=== PATIENT | female | born 1955 | race Caucasian/White ===

== ENCOUNTER → 2018-08-08 | Day surgery (SDC) | payer BC ==
[~2018-08-08] MED LIST: CALCIUM CARBON500 MG PO; FENTANYL CITRATE/PF 100MCG/2 ML INJ ONE; GLUCOSAMINE &1 EAC1 PO; LOSARTAN POTASS25 MG PO; MIDAZOLAM HCL 2 MG/2 ML VIAL ONE; PROPOFOL IV EMULSION 10 MG/ML 50 ML VIAL ONE
--- OUTSIDE RECORDS SUMMARY | 2018-08-08 06:16 | XMS REPORT | Clinical Summary ---
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 01/02/2019 Active etodolac (LODINE) 400 MG Take 1 tablet 60 tablet 11 tabletIndications: Left (400 mg 8 hip pain total) by mouth 2 (two) times a day. Active Problems No known active problems Encounters Care Team Description Date Type Specialty Richie Paz MD Femoroacetabular impingement of left hip (Primary Dx); Hip instability, left; Tear of left acetabular labrum, subsequent encounter; Greater trochanteric bursitis of left hip; Tendinopathy of left gluteus medius 04/08/2018 Office Visit Orthopedic Surgery Gemma Dumont MA 03/05/2018 Telephone Orthopedic Surgery Richie Paz MD Left hip pain 02/28/2018 Hospital Radiology Encounter Richie Paz MD Left hip pain (Primary Dx); Femoroacetabular impingement of left hip; Hip instability, left; Tear of left acetabular labrum, subsequent encounter; Greater trochanteric bursitis of left hip 02/18/2018 Office Visit Orthopedic Surgery Richie Paz MD Left hip pain 01/02/2018 Hospital Radiology Encounter Richie Paz MD Left hip pain (Primary Dx); Femoroacetabular impingement of left hip; Hip instability, left; Dysplasia of acetabulum; Tear of left acetabular labrum, subsequent encounter; Tendinopathy of left gluteus medius; Greater trochanteric bursitis of left hip 01/02/2018 Office Visit Orthopedic Surgery Gemma Dumont MA Femoroacetabular impingement of left hip (Primary Dx) 11/20/2017 Orders Only Orthopedic Surgery Richie Paz MD Femoroacetabular impingement of left hip (Primary Dx); Hip instability, left; Labral tear of hip, degenerative; Tendinopathy of left gluteus medius 11/12/2017 Office Visit Orthopedic Surgery Richie Paz MD Femoroacetabular impingement of left hip (Primary Dx); Hip instability, left 09/05/2017 Office Visit Orthopedic Surgery after 08/07/2017 Social History Date Tobacco Use Types Packs/Day Years Used Never Smoker Smokeless Tobacco: Never Used Alcohol Use Drinks/Week oz/Week Comments No Sex Assigned at Date Recorded Not on file Industry Job Start Date Occupation Not on file Not on file Not on file Travel End Travel History Travel Start No recent travel history available. Last Filed Vital Signs Time Taken Vital Sign Reading 01/02/2018 12:56 PM CDT Blood Pressure 136/75 01/02/2018 12:56 PM CDT Pulse 48 04/08/2018 12:17 PM HEAT TRANSFER TECHNICIAN Temperature 36.3 C (97.3 F) 01/02/2018 11:45 AM CDT Respiratory Rate 18 - Oxygen Saturation - - Inhaled Oxygen - Concentration 04/08/2018 12:17 PM HEAT TRANSFER TECHNICIAN Weight 54.4 kg (120 lb) 04/08/2018 12:17 PM HEAT TRANSFER TECHNICIAN Height 167.6 cm (5' 6") 04/08/2018 12:17 PM HEAT TRANSFER TECHNICIAN Body Mass Index 19.37 Plan of Treatment Health Maintenance Due Date Last Done Comments CERVICAL CANCER SCREENING 09/23/1976 BREAST CANCER SCREENING 09/23/2005 COLON CANCER SCREENING 09/23/2005 SHINGLES VACCINES (#1) 09/23/2005 INFLUENZA VACCINE 11/28/2018 Procedures Comments Procedure Name Priority Date/Time Associated Diagnosis DE INJECT PLATELET RICH Routine 04/08/2018 Femoroacetabular PLASMA W/IMG 12:30 PM HEAT TRANSFER TECHNICIAN impingement of left hip HARVEST/PREPARATOIN DE ARTHROCENTESIS Routine 04/08/2018 Femoroacetabular ASPIR&/INJ MAJOR JT/BURSA 12:30 PM HEAT TRANSFER TECHNICIAN impingement of left hip W/US MRI LOWER EXTREMITY JOINT Routine 02/28/2018 Left hip pain WO CONTRAST LEFT 9:03 AM CDT FL FLUOROSCOPY GUIDED Routine 01/02/2018 Left hip pain INJECTION 12:57 PM CDT after 08/07/2017 Results * Large Joint Arthrocentesis: hip, L hip joint (04/08/2018 12:30 PM HEAT TRANSFER TECHNICIAN) Narrative Performed At Richie Paz MD 04/29/20189:29 PM Large Joint Arthrocentesis: hip, L hip joint Consent given by: patient Site marked: site marked Timeout: Immediately prior to procedure a time out was called to verify the correct patient, procedure, equipment, customer support agent and site/side marked as required Supporting Documentation Indications: pain Procedure Details Preparation: Patient was prepped and draped in the usual sterile fashion Ultrasound guided: yes Platelet Rich Plasma Used: PRP Used Location: hip - L hip joint Left side: Needle size: 20 G Approach: anterior Patient tolerance: patient tolerated the procedure well with no immediate complications * MRI Lower Extremity Joint Wo Contrast Left (02/28/2018 9:03 AM CDT) Narrative Performed At [facility] EXAM: MRI LOWER EXTREMITY JOINT WO CONTRAST LEFT CLINICAL DATA:M25.552 Pain in left hip, pain COMPARISON: Outside MRI performed on June 07, 2017. TECHNIQUE: Multiplanar, multisequence MRI examination ofthe left hip was performed without contrast. FINDINGS: Bone marrow: There are some enthesophytes on the greater trochanter. There is no stress fracture or bone marrow edema. Labrum: Tiny anterosuperior labral tear. No paralabral cyst. Remaining portions of the labrum appear intact. 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 Cartilage: The femoral and acetabular cartilage are normal. Joint effusion: Joint fluid is physiologic.. Soft tissues: There is mildly increased fluid in the trochanteric bursa, compatible with mild bursitis.. There is some abnormal signal associated with the gluteus minimus and medius tendons, consistent with tendinosis. The appearance is similar to the prior study.. The direct and reflected heads of the rectus femoris muscle are unremarkable. The common hamstring origin is within normal limits. No abnormality is noted along the course of the sciatic nerve. There is no evidence of ischiofemoral impingement. IMPRESSION: 1.Gluteus minimus and medius tendinosis. 2.Mild trochanteric bursitis. 3.Cam FADIA and small labral tear. [id number] Procedure Note Interface, Radiology Results Incoming - 02/28/2018 9:33 AM CDT EXAM: MRI LOWER EXTREMITY JOINT WO CONTRAST LEFT CLINICAL DATA: M25.552 Pain in left hip, pain COMPARISON: Outside MRI performed on June 07, 2017. TECHNIQUE: Multiplanar, multisequence MRI examination of the left hip was performed without contrast. FINDINGS: Bone marrow: There are some enthesophytes on the greater trochanter. There is no stress fracture or bone marrow edema. Labrum: Tiny anterosuperior labral tear. No paralabral cyst. Remaining portions of the labrum appear intact. 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 Cartilage: The femoral and acetabular cartilage are normal. Joint effusion: Joint fluid is physiologic.. Soft tissues: There is mildly increased fluid in the trochanteric bursa, compatible with mild bursitis.. There is some abnormal signal associated with the gluteus minimus and medius tendons, consistent with tendinosis. The appearance is similar to the prior study.. The direct and reflected heads of the rectus femoris muscle are unremarkable. The common hamstring origin is within normal limits. No abnormality is noted along the course of the sciatic nerve. There is no evidence of ischiofemoral impingement. IMPRESSION: 1. Gluteus minimus and medius tendinosis. 2. Mild trochanteric bursitis. 3. Cam FADIA and small labral tear. [facility]-[id number] Performing Organization Address City/State/Zipcode Phone Number [facility] [address] [place] [address] * [place] Fluoroscopy Guided Injection (01/02/2018 12:57 PM CDT) Narrative Performed At EXAMINATION:[place] FLUOROSCOPY GUIDED INJECTION [facility] CLINICAL HISTORY:M25.552 Pain in left hip, pain COMPARISON:None. COMMENTS: Informed consent was obtained. Left hip joint was localized with fluoroscopy. The overlying skin was prepped and draped in routine sterile fashion. Using fluoroscopic guidance, after administration of local lidocaine, a 22 gauge needle was advanced into the left hip joint. Small amount of Omnipaque contrast was administered to confirm intra-articular positioning. Subsequently, mixture of 40 mg of Depo-Medrol and 5 mL of 1% lidocaine and 5 mL mL of 0.25% Marcaine was administered in the joint.Patient tolerated the procedure and there were no immediate complications. Radiation dose: 18.4 mGy IMPRESSION: Technically successful fluoroscopic-guided administration of steroid and anesthetic in the left hip joint. [id number] Procedure Note Interface, Radiology Results Incoming - 01/02/2018 3:19 PM CDT EXAMINATION: FL FLUOROSCOPY GUIDED INJECTION CLINICAL HISTORY: M25.552 Pain in left hip, pain COMPARISON: None. COMMENTS: Informed consent was obtained. Left hip joint was localized with fluoroscopy. The overlying skin was prepped and draped in routine sterile fashion. Using fluoroscopic guidance, after administration of local lidocaine, a 22 gauge needle was advanced into the left hip joint. Small amount of Omnipaque contrast was administered to confirm intra-articular positioning. Subsequently, mixture of 40 mg of Depo- Medrol and 5 mL of 1% lidocaine and 5 mL mL of 0.25% Marcaine was administered in the joint. Patient tolerated the procedure and there were no immediate complications. Radiation dose: 18.4 mGy IMPRESSION: Technically successful fluoroscopic-guided administration of steroid and anesthetic in the left hip joint. [facility]-[id number] Performing Organization Address City/State/Zipcode Phone Number [facility] [address] [place] [address] after 08/07/2017 Insurance Payer Benefit Subscriber ID Type Phone Address Plan / Group BCBS BCBS OUT xxxxxxxxxxxx PPO OF STATE Advance Directives Patient has advance care planning documents on file. For more information, mathew hollins contact: Irvin Martin [address] [place] [address]
--- OUTSIDE RECORDS SUMMARY | 2018-08-08 06:16 | XMS REPORT | Clinical Summary ---
Author Author ASHLEY [facility] Address Unknown Phone Unavailable Care Team Providers Care Alum Operator Name Role Phone Bart Cortes PCP Allergies No Known Allergies Medications End Date Status Medication Sig Dispensed Refills Start Date Active losartan (COZAAR) 50 MG Take 50 mg by 0 tablet mouth daily. Active amoxicillin-clavulanate Take 1 tablet 0 (AUGMENTIN) 875-125 mg by mouth 2 per tablet (two) times daily. Active predniSONE (DELTASONE) 20 Take 20 mg by 0 MG tablet mouth daily. Active ferrous sulfate 325 (65 Take 325 mg 0 FE) MG tablet by mouth daily with breakfast. Active calcium citrate-vitamin D Take 1 tablet 0 (CITRACAL+D) 315-200 by mouth 2 mg-unit per tablet (two) times daily. Active dexamethasone (DECADRON) 2/2-3: 2 tabs 24 tablet 0 4 MG tablet w/ breakfast, 9 lunch, dinner 24-5: 2 tabs bfast, dinner 6-7: 1 tab bfast, dinner /8-9: 1 tab bfast. 06/11/2018 famotidine (PEPCID) 20 MG Take 1 tablet 20 tablet 0 tablet (20 mg total) 9 by mouth 2 (two) times daily for 10 days. 06/11/2018 senna-docusate (SENOKOT Take 1 tablet 20 tablet 0 S) 8.6-50 mg per tablet by mouth 2 9 (two) times daily for 10 days. 06/08/2018 acetaminophen-codeine Take 1 tablet 30 tablet 0 (TYLENOL #4) 300-60 mg by mouth 9 per tablet every 4 (four) hours as needed for Pain for up to 7 days. Max Daily Amount: 6 tablets Active Problems Problem Noted Date Hypertension 05/31/2018 Overview: controlled with meds x 20 yrs Anemia 05/31/2018 Thrombocytopenia 05/31/2018 Meningioma 05/30/2018 Encounters Care Team Description Date Type Specialty 06/01/2018 Travel Kasi Turcios MD CRANIOTOMY/ CRANIECTOMY,EXCISION TUMOR 05/30/2018 Surgery Kelsi Sandoval MD 05/30/2018 Anesthesia Event Kasi Turcios MD Mezrahi, Maria, MD Gadicherla, Sonal Muralinath, MD Meningioma (HCC) (Primary Dx); Anemia, unspecified type; Essential hypertension; Thrombocytopenia (HCC) 05/30/2018 [facility] General Internal Medicine - Encounter 06/01/2018 Kasi Turcios MD Benign neoplasm of meninges (HCC) 05/22/2018 Hospital Radiology Encounter Kasi Turcios MD Benign neoplasm of meninges (HCC) 05/22/2018 Hospital Radiology Encounter Kasi Turcios MD Benign neoplasm of meninges (HCC) (Primary Dx) 05/21/2018 Outside Orders Radiology Kasi Turcios MD Meningioma (HCC) (Primary Dx) 05/21/2018 Orders Only Neurosurgery Fab Paz 05/21/2018 Outside Orders Radiology Kasi Turcios MD 05/20/2018 Hospital Pre-Admission Testing Encounter 05/20/2018 Orders Only General Internal Medicine after 08/07/2017 Immunizations Name Dates Previously Given Next Due Pneumococcal Conjugate 06/01/2018 (Prevnar) 13-Valent Social History Date Tobacco Use Types Packs/Day Years Used Never Smoker Smokeless Tobacco: Never Used Alcohol Use Drinks/Week oz/Week Comments Yes occ Sex Assigned at Date Recorded Not on file Industry Job Start Date Occupation Not on file Not on file Not on file Travel End Travel History Travel Start No recent travel history available. Last Filed Vital Signs Time Taken Vital Sign Reading 06/01/2018 12:13 PM [employer] Blood Pressure 133/78 06/01/2018 12:13 PM [employer] Pulse 55 06/01/2018 12:13 PM [employer] Temperature 37.2 C (98.9 F) 06/01/2018 12:13 PM [employer] Respiratory Rate 20 06/01/2018 12:13 PM [employer] Oxygen Saturation 95% - Inhaled Oxygen - Concentration 05/31/2018 5:30 AM [employer] Weight 56.6 kg (124 lb 12.5 oz) 05/30/2018 6:00 AM [employer] Height 167.6 cm (5' 5.98") 05/31/2018 5:30 AM [employer] Body Mass Index 20.15 Plan of Treatment Not on file Implants Device Identifier Shelf Expiration Date Model / Serial / Lot Implanted Type Area Manufactur er [id number] / / Cvr Bur Hole Lp 14mm W/Tab [id number] Fracture/F Head GOGO:ST - [id number] ixation MARCELA Implanted: Qty: 2 on 05/30/2018 by Kasi Cruz MD [id number] / / Plt Mod Lp Bar 12mm W/Tab 2h Fracture/F Head GOGO:ST [id number] - [id number] ixation MARCELA Implanted: Qty: 1 on 05/30/2018 by Kasi Cruz MD [id number] / / Scr Un3 [place] Self Drl 1.5x4mm Fracture/F Head GOGO:CR [id number] - [id number] ixation ANIOMAXILL Implanted: Qty: 10 on 05/30/2018 by Kasi Malone MD Procedures Comments Procedure Name Priority Date/Time Associated Diagnosis INTRAOPERATIVE PATH 06/17/2018 REPORT - SCAN 11:50 AM [employer] RHYTHM STRIP - SCAN 06/17/2018 11:50 AM [employer] CBC W/PLT COUNT & AUTO Routine 06/01/2018 DIFFERENTIAL 4:33 AM [employer] BASIC METABOLIC PANEL (7) Routine 06/01/2018 4:33 AM [employer] CBC W/PLT COUNT & AUTO Routine 06/01/2018 DIFFERENTIAL 4:33 AM [employer] TRANSFUSION SERVICE 05/31/2018 REPORT - SCAN 6:02 PM [employer] MR BRAIN WITHOUT & WITH Routine 05/31/2018 IV CONTRAST 1:10 PM [employer] CBC W/PLT COUNT & AUTO Routine 05/31/2018 DIFFERENTIAL 4:48 AM [employer] BASIC METABOLIC PANEL (7) Routine 05/31/2018 4:48 AM [employer] CBC W/PLT COUNT & AUTO Routine 05/31/2018 DIFFERENTIAL 4:48 AM [employer] PHOSPHORUS Routine 05/31/2018 4:48 AM [employer] MAGNESIUM Routine 05/31/2018 4:48 AM [employer] CBC (HEMOGRAM ONLY) Routine 05/30/2018 2:13 PM [employer] PHOSPHORUS Routine 05/30/2018 2:13 PM [employer] MAGNESIUM Routine 05/30/2018 2:13 PM [employer] BASIC METABOLIC PANEL (7) Routine 05/30/2018 2:13 PM [employer] SHORT LATENCY SEP ALL Routine 05/30/2018 LIMBS 1:00 PM [employer] HGB/HCT (H&H) - STAT LAB STAT 05/30/2018 12:23 PM [employer] GLUCOSE-STAT LAB STAT 05/30/2018 12:23 PM [employer] POTASSIUM-STAT LAB STAT 05/30/2018 12:23 PM [employer] SODIUM NA-STAT LAB STAT 05/30/2018 12:23 PM [employer] BLOOD GAS, ARTERIAL STAT 05/30/2018 12:23 PM [employer] CALCIUM, IONIZED STAT 05/30/2018 12:23 PM [employer] RRL CRITICAL LABS STAT 05/30/2018 (ABG,NA,K,H&H,GLUCOSE) 12:23 PM [employer] TISSUE EXAM AP Routine 05/30/2018 10:23 AM [employer]ER HGB/HCT (H&H) - STAT LAB STAT 05/30/2018 9:09 AM [employer]ER GLUCOSE-STAT LAB STAT 05/30/2018 9:09 AM [employer] POTASSIUM-STAT LAB STAT 05/30/2018 9:09 AM [employer] SODIUM NA-STAT LAB STAT 05/30/2018 9:09 AM [employer] BLOOD GAS, ARTERIAL STAT 05/30/2018 9:09 AM [employer] CALCIUM, IONIZED STAT 05/30/2018 9:09 AM [employer] RRL CRITICAL LABS STAT 05/30/2018 (ABG,NA,K,H&H,GLUCOSE) 9:09 AM [employer]ER PROCEDURE W/ STEALTH 05/30/2018 Meningioma (HCC) 8:30 AM [employer] Special Needs (INTRA-OPE RATIVE ULTRASOUND , MICROSCOPE , STEALTH NAVIGATION , MCKENZIE CLAMP, SONOPET, DRILL AND MICRO INSTRUMENT S) CRANIOTOMY/ 05/30/2018 Meningioma (HCC) CRANIECTOMY,EXCISION 8:30 AM [employer] TUMOR Special Needs (INTRA-OPE RATIVE ULTRASOUND , MICROSCOPE , STEALTH NAVIGATION , MCKENZIE CLAMP, SONOPET, DRILL AND MICRO INSTRUMENT S) URINALYSIS W/ MICROSCOPIC Routine 05/30/2018 Meningioma (HCC) 7:23 AM [employer] CBC W/PLT COUNT & AUTO Routine 05/30/2018 Meningioma (HCC) DIFFERENTIAL 6:17 AM [employer]ER ABORH, MANUAL STAT 05/30/2018 6:17 AM [employer] CBC W/PLT COUNT & AUTO Routine 05/30/2018 Meningioma (HCC) DIFFERENTIAL 6:17 AM [employer] BASIC METABOLIC PANEL (7) Routine 05/30/2018 Meningioma (HCC) 6:17 AM [employer]ER PROTHROMBIN TIME/INR Routine 05/30/2018 Meningioma (HCC) 6:17 AM [employer] APTT Routine 05/30/2018 Meningioma (HCC) 6:17 AM [employer] MR BRAIN WITHOUT & WITH Routine 05/22/2018 Benign neoplasm of IV CONTRAST 2:18 PM [employer] meninges (HCC) MR MRA HEAD WITHOUT Routine 05/22/2018 Benign neoplasm of CONTRAST 1:20 PM [employer] meninges (HCC) TRANSFUSION SERVICE 05/21/2018 REPORT - SCAN 5:54 PM [employer] TYPE AND SCREEN, Routine 05/20/2018 AUTOMATED 3:09 PM [employer] ELECTROLYTE PANEL Routine 05/20/2018 3:09 PM [employer] BUN AND CREATININE Routine 05/20/2018 3:09 PM [employer] PLATELET COUNT Routine 05/20/2018 3:09 PM [employer] HEMOGLOBIN Routine 05/20/2018 3:09 PM [employer] ECG 12-LEAD Routine 05/20/2018 3:04 PM [employer] Procedure Note - Interface, External Ris In - 05/20/2018 3:16 PM [employer] Ventricula r Rate 55 BPM Atrial Rate 55 BPM P-R Interval 162 ms QRS Duration 88 ms Q-T Interval 444 ms QTC Calculatio n(Bazett) 424 ms P [place] 53 degrees R [place] 78 degrees T [place] 7 degrees Sinus bradycardi a Minimal voltage criteria for LVH, may be normal variant Nonspecifi c T wave abnormalit y Abnormal ECG No previous ECGs available ECG 12-LEAD Routine 05/20/2018 3:04 PM [employer] after 08/07/2017 Results * INTRAOPERATIVE PATH REPORT - SCAN (06/17/2018 11:50 AM [employer] [facility]) Narrative Performed At * RHYTHM STRIP - SCAN (06/17/2018 11:50 AM [employer]) Narrative Performed At * CBC with platelet count + automated diff (06/01/2018 4:33 AM [employer]ER) Only the most recent of 3 results within the time period is included. WBC 13.2 (H) 3.5 - 10.5 K/L [facility] RBC 3.56 (L) 3.93 - 5.22 M/L [facility] Hemoglobin 10.9 (L) 11.2 - 15.7 GM/DL [facility] Hematocrit 32.8 (L) 34.1 - 44.9 % [facility] MCV 92.1 79.4 - 94.8 fL [facility] MCH 30.6 25.6 - 32.2 pg [facility] MCHC 33.2 32.2 - 35.5 GM/DL [facility] RDW 12.8 11.7 - 14.4 % [facility] Platelets 149 (L) 150 - 450 K/CU MM [facility] MPV 12.9 (H) 9.4 - 12.3 fL [facility] nRBC 0 0 - 0 /100 WBC [facility] % Neutros 92 % [facility] % Lymphs 4 % [facility] % Monos 3 % [facility] % Eos 0 % [facility] % Baso 0 % [facility] # Neutros 12.13 (H) 1.56 - 6.13 K/L [facility] # Lymphs 0.49 (L) 1.18 - 3.74 K/L [facility] # Monos 0.45 (H) 0.24 - 0.36 K/L [facility] # Eos 0.00 (L) 0.04 - 0.36 K/L [facility] # Baso 0.01 0.01 - 0.08 K/L [facility] Immature 1 0 - 1 % [facility] Granulocytes-[facility] Specimen Blood Performing Organization Address City/State/Zipcode Phone Number [facility] [address] [place] [address] MEDICAL CENTER * Basic Metabolic Panel (06/01/2018 4:33 AM [employer]ER) Only the most recent of 4 results within the time period is included. [facility] 142 136 - 145 meq/L [facility] Potassium 3.8 3.5 - 5.1 meq/L [facility] Chloride 109 (H) 98 - 107 meq/L [facility] CO2 26 22 - 29 meq/L [facility] BUN 15 7 - 21 mg/dL [facility] Creatinine 0.68 0.57 - 1.25 mg/dL [facility] Glucose 141 (H) 70 - 105 mg/dL [facility] Calcium 9.0 8.4 - 10.2 mg/dL [facility] EGFR 88Comment: ESTIMATED GFR IS mL/min/1.73 sq m [facility] NOT ACCURATE CREATININE [facility] CLEARANCE IN PREDICTING GLOMERULAR FILTRATION RATE. ESTIMATED GFR IS NOT APPLICABLE FOR DIALYSIS PATIENTS. Specimen Blood Performing Organization Address City/State/Zipcode Phone Number [facility] [address] [place] [address] [facility] * TRANSFUSION SERVICE REPORT - SCAN (05/31/2018 6:02 PM [employer]ER) Only the most recent of 2 results within the time period is included. Narrative Performed At * MR brain without & with IV contrast (05/31/2018 1:10 PM [employer]ER) Only the most recent of 2 results within the time period is included. Narrative Performed At FINAL REPORT [employer] MRI Brain with and without contrast 05/31/2018 2:00 PM CLINICAL HISTORY: skull base meningioma s/p resection TECHNIQUE: Multiplanar, multisequence MR imaging of the brain was performed, utilizing the following imaging sequences: Axial T1, T2, FLAIR, GRE, DWI/ADC; sagittal T1; postcontrast axial, sagittal, and coronal T1. COMPARISON: 05/22/2019. FINDINGS: There is no residual olfactory groove meningioma. There is disorganized hemorrhage within and about the paramedian anterior inferior frontal lobes. There is no organized hematoma. There is small volume ischemic edema within the paramedian anterior inferior frontal lobes. There is no arterial or venous distribution infarction. There is a 13 mm mixed signal intensity subdural collection overlying the right frontal lobe, with mass effect resulting in 5 mm midline shift, measured at the septum pellucidum. There is no parenchymal herniation or ventricular entrapment. There is small volume pneumocephalus without concerning mass effect. There is no craniotomy offset or concerning subgaleal collection. Normal appearing flow-voids are present in the major intracranial vascular structures. There is an unchanged 16 mm nonenhancing T2/FLAIR hyperintense lesion without mass effect in the anteromesial left temporal lobe. IMPRESSION: 1. Negative for residual olfactory groove meningioma. 2. Postoperative changes as discussed. 3. Stable anteromesial left temporal lobe lesion Signed: Alex Voss MD Report Verified Date/Time:05/31/2018 14:05:06 Reading Location: [facility] Radiology Reading Room Procedure Note Interface, External Ris In - 05/31/2018 2:07 PM [employer]ER FINAL REPORT MRI Brain with and without contrast 05/31/2018 2:00 PM CLINICAL HISTORY: skull base meningioma s/p resection TECHNIQUE: Multiplanar, multisequence MR imaging of the brain was performed, utilizing the following imaging sequences: Axial T1, T2, FLAIR, GRE, DWI/ADC; sagittal T1; postcontrast axial, sagittal, and coronal T1. COMPARISON: 05/22/2019. FINDINGS: There is no residual olfactory groove meningioma. There is disorganized hemorrhage within and about the paramedian anterior inferior frontal lobes. There is no organized hematoma. There is small volume ischemic edema within the paramedian anterior inferior frontal lobes. There is no arterial or venous distribution infarction. There is a 13 mm mixed signal intensity subdural collection overlying the right frontal lobe, with mass effect resulting in 5 mm midline shift, measured at the septum pellucidum. There is no parenchymal herniation or ventricular entrapment. There is small volume pneumocephalus without concerning mass effect. There is no craniotomy offset or concerning subgaleal collection. Normal appearing flow-voids are present in the major intracranial vascular structures. There is an unchanged 16 mm nonenhancing T2/FLAIR hyperintense lesion without mass effect in the anteromesial left temporal lobe. IMPRESSION: 1. Negative for residual olfactory groove meningioma. 2. Postoperative changes as discussed. 3. Stable anteromesial left temporal lobe lesion Signed: Alex Voss MD Report Verified Date/Time: 05/31/2018 14:05:06 Reading Location: [facility] Reading Room Performing Organization Address City/State/Zipcode Phone Number [facility] * Phosphorus (05/31/2018 4:48 AM [employer]ER) Only the most recent of 2 results within the time period is included. Phosphorus 3.2 2.3 - 4.7 mg/dL [facility] Specimen Blood Performing Organization Address [facility] Phone Number [address] * Magnesium (05/31/2018 4:48 AM [employer]ER) Only the most recent of 2 results within the time period is included. Magnesium 1.9 1.6 - 2.6 mg/dL [facility] Specimen Blood Performing Organization Address [facility] Phone Number [address] * CBC (Hemogram only) (05/30/2018 2:13 PM [employer]ER) WBC 5.7 3.5 - 10.5 K/L [facility] RBC 3.90 (L) 3.93 - 5.22 M/L [facility] Hemoglobin 12.0 11.2 - 15.7 GM/DL [facility] Hematocrit 35.8 34.1 - 44.9 % [facility] MCV 91.8 79.4 - 94.8 fL [facility] MCH 30.8 25.6 - 32.2 pg [facility] MCHC 33.5 32.2 - 35.5 GM/DL [facility] RDW 12.6 11.7 - 14.4 % [facility] Platelets 148 (L) 150 - 450 K/CU MM [facility] MPV 12.3 9.4 - 12.3 fL [facility] nRBC 0 0 - 0 /100 WBC [facility] Specimen Blood - Line, Arterial Performing Organization Address City/State/Zipcode Phone Number [facility] [address] [place] [address] MEDICAL CENTER * SHORT LATENCY SEP ALL LIMBS (05/30/2018 1:00 PM [employer]ER) Narrative Performed At [facility]UROCON[facility] INTRAOPERATIVE MONITORING REPORT Patient Name: Trini Paz [facility] Surgery Date: 05/30/2018 [place] Pro: [id number] Monitoring began at 0812 and finished at 1315 Surgeon: Kasi Turcios MD Examining Physician: Claudia Mejia M.D., Karey Edwards M.D. Monitoring Technologist: SALENA Muse Procedure: Right Pterional Craniotomy for resection of skull base meningioma Stimulation Parameters: Median nerves individually stimulated at the wrist Rate 4.7Hz, Intensity 35mA, Duration 0.3ms Posterior Tibial nerves individually stimulated at the ankle Rate 4.7Hz, Intensity 80mA, Duration 0.3ms Filters 30-500Hz, Notch Off Motor strip stimulated anterior to C3 and C4 with alternating polarities Intensity 100-500V, Train Rate 7-9, TRES 2-3ms Filters 30-2KHz, Notch Off Recording Parameters: CS5, CP3, CP4, Cz and FPz, Transcranial electrical Motor Evoked Potentials recorded from bilateral Abductor Pollicis Brevis, Tibialis Anterior referenced to Lateral Gastrocnemius, and Adductor Hallucis muscle groups. Description: Intraoperative neurophysiological monitoring was performed using a combination of upper and lower extremity somatosensory evoked potentials and transcranial electrical motor evoked potentials (TceMEP). A real-time connection with the examining neurologist was established and maintained throughout the operative procedure by the monitoring technologist. Upper extremity somatosensory evoked potentials were recorded centrally at the cervical and cortical levels following median nerve stimulation at the wrist. Lower extremity somatosensory evoked potentials were recorded centrally at the cervical and cortical levels following posterior tibial nerve stimulation at the ankle. Upper and lower SSEPs were well formed and reproducible at baselines. No changes were seen at closing. Surgeon aware. TcMEPs were recorded peripherally from the upper and lower extremities following alternating polarity motor strip stimulation. Upper and lower TcMEPs were well formed and reproducible at baselines. No changes seen at closing. The surgeon was informed of all results, and he acknowledged. Conclusion: The SEP study suggests the absence of untoward, secondary effects on the somatosensory pathway as a consequence of this surgical procedure. The MEP study suggests the absence of untoward, secondary effects on the motor pathways innervating these monitored muscles. Surgeon aware of all responses in real-time during the case and at closing. Claudia Mejia M.D. D32.9, D64.9 Karey Edwards M.D. D32.9, D64.9 Procedure Note Interface, External Ris In - 06/14/2018 8:58 PM [facility] NEUROCONNECT INTRAOPERATIVE MONITORING REPORT Patient Name: Trini Paz [facility] Surgery Date: 05/30/2018 [place] Pro: [id number] Monitoring began at 0812 and finished at 1315 Surgeon: Kasi Turcios MD Examining Physician: Claudia Mejia M.D., Karey Edwards M.D. Monitoring Technologist: SALENA Muse Procedure: Right Pterional Craniotomy for resection of skull base meningioma Stimulation Parameters: Median nerves individually stimulated at the wrist Rate 4.7Hz, Intensity 35mA, Duration 0.3ms Posterior Tibial nerves individually stimulated at the ankle Rate 4.7Hz, Intensity 80mA, Duration 0.3ms Filters 30-500Hz, Notch Off Motor strip stimulated anterior to C3 and C4 with alternating polarities Intensity 100-500V, Train Rate 7-9, TRES 2-3ms Filters 30-2KHz, Notch Off Recording Parameters: CS5, CP3, CP4, Cz and FPz, Transcranial electrical Motor Evoked Potentials recorded from bilateral Abductor Pollicis Brevis, Tibialis Anterior referenced to Lateral Gastrocnemius, and Adductor Hallucis muscle groups. Description: Intraoperative neurophysiological monitoring was performed using a combination of upper and lower extremity somatosensory evoked potentials and transcranial electrical motor evoked potentials (TceMEP). A real-time connection with the examining neurologist was established and maintained throughout the operative procedure by the monitoring technologist. Upper extremity somatosensory evoked potentials were recorded centrally at the cervical and cortical levels following median nerve stimulation at the wrist. Lower extremity somatosensory evoked potentials were recorded centrally at the cervical and cortical levels following posterior tibial nerve stimulation at the ankle. Upper and lower SSEPs were well formed and reproducible at baselines. No changes were seen at closing. Surgeon aware. TcMEPs were recorded peripherally from the upper and lower extremities following alternating polarity motor strip stimulation. Upper and lower TcMEPs were well formed and reproducible at baselines. No changes seen at closing. The surgeon was informed of all results, and he acknowledged. Conclusion: The SEP study suggests the absence of untoward, secondary effects on the somatosensory pathway as a consequence of this surgical procedure. The MEP study suggests the absence of untoward, secondary effects on the motor pathways innervating these monitored muscles. Surgeon aware of all responses in real-time during the case and at closing. Claudia Mejia M.D. D32.9, D64.9 Karey Edwards M.D. D32.9, D64.9 Performing Organization Address City/State/Zipcode Phone Number [facility] * Potassium-Stat Lab (05/30/2018 12:23 PM [employer]ER) Only the most recent of 2 results within the time period is included. Potassium 3.7 3.6 - 5.5 meq/L [facility] Specimen Blood, Arterial Performing Organization Address [facility] Phone Number [address] * Sodium Na-Stat Lab (05/30/2018 12:23 PM [employer]ER) Only the most recent of 2 results within the time period is included. Sodium 140 135 - 148 meq/L [facility] Specimen Blood, Arterial Performing Organization Address City/[facility] Phone Number [place] [phone] * Glucose-Stat Lab (05/30/2018 12:23 PM BREWERY PUMPER) Only the most recent of 2 results within the time period is included. Glucose 107 70 - 110 mg/dL [facility] Specimen Blood, Arterial Performing Organization Address [facility] Phone Number [address] * HGB/HCT (H&H)-Stat Lab (05/30/2018 12:23 PM [employer]WERY PUMPER) Only the most recent of 2 results within the time period is included. Hemoglobin 11.8 (L) 12.0 - 15.0 g/dL [facility] Hematocrit 35.0 (L) 36.0 - 45.0 % [facility] Specimen Blood, Arterial Performing Organization Address [facility] Phone Number [place] [phone] [place] [address] * Calcium, Ionized (05/30/2018 12:23 PM BREWERY PUMPER) Only the most recent of 2 results within the time period is included. Calcium, Ion 1.08 (L) 1.12 - 1.27 mmol/L [facility] pH, Blood 7.39 [facility] Specimen Blood Performing Organization Address [facility] Phone Number [address] [address] [facility] * Blood gas, arterial (05/30/2018 12:23 PM BREWERY PUMPER) Only the most recent of 2 results within the time period is included. pH, Arterial 7.46 (H) 7.35 - 7.45 [facility] pCO2, Arterial 30 (L) 35 - 45 mmHg [facility] pO2, Arterial 254 (H) 80 - 90 mmHg [facility] O2 Sat, Arterial 99.6 (H) 96.0 - 97.0 % [facility] HCO3, Arterial 22 21 - 29 mmol/L [facility] Base Excess, Arterial -2.6 (L) -2.0 - 3.0 mmol/L [facility] Patient Temperature 32.0 C [facility] FIO2 57.0 % [facility] Specimen Blood, Arterial Performing Organization Address City/State/Zipcode Phone Number [facility] [address] [place] [address] [facility] * Tissue Exam (05/30/2018 10:23 AM BREWERY PUMPER) Case Report Surgical Pathology [facility] Report [facility] Case: [id number] Authorizing Provider:Kasi Turcios MDCollected: 05/30/2018 1023 Ordering Location: [facility] PERIOPERATIVE Received: 05/30/2018 1026 SERVICES Pathologist: Denny Gill MD Specimens: A) - Mass, BRAIN TUMOR B) - Mass, SKULL BASE MASS DIAGNOSIS A BRAIN, SKULL BASE, [facility] CRANIOTOMY: [facility] TRANSITIONAL MENINGIOMA WITH FOCALLY INCREASED PROLIFERATION INDEX (SEE COMMENT) B BRAIN, SKULL BASE, CRANIOTOMY: TRANSITIONAL MENINGIOMA WITH FOCALLY INCREASED PROLIFERATION INDEX (SEE COMMENT) Signing Pathologist Direct Phone Line: [phone] COMMENT The tumor has no atypical [facility] histologic features and [facility] mitoses are not increased. The majority of the tumor has a MIB-1 labeling index of 3-4%. However, several microscopic foci of intense nuclear labeling by Ki67 are noted in the tumor cells. Within these areas, the labeling index is from 20-30%. So although the histology corresponds to WHO grade I, the foci of markedly increased proliferation indices warrants close clinical follow-up, as is clinically indicated. CPT Code(s) 25002 x 2; 87158; 24734 [facility] SPECIMEN SOURCE A. Brain tumor; B. Mass [facility] GROSS DESCRIPTION Part A. Received fresh for [facility] intraoperative consultation is [facility] a 0.3 x 0.1 x less than 0.1 cm macias-fleming piece of tissue. Touch preparations are made, and the specimen is submitted entirely for frozen sections. Section code: A1FS, frozen section AG/ew Part B: Received in formalin, labeled with the patient's information and "mass", is a 1.7 x 1.2 x 0.3 cm aggregate of macias-pink to macias-red pieces of tissue. The specimen is submitted entirely following filtration in cassette B1. DR/pl INTRAOPERATIVE A1FS - BRAIN, EXCISION: [facility] CONSULTATION - MENINGIOMA [facility] This was verbally reported by Dr. Gill on May 30, 2018 at 10:48 A.M. MICROSCOPIC DESCRIPTION Performed on A and B [facility] SPECIAL STUDIES The interpretation of this [facility] case included the use of [facility] immunohistochemistry or special stains. Immunohistochemistry technical testing was performed at [facility], Pathology Laboratory where it was developed and its performance characteristics were determined. It has not been cleared or approved by the U.S. Food and Drug Administration. The FDA has determined that such clearance or approval is not necessary. The test is used for clinical purposes. It should not be regarded as investigational or for research. This laboratory is certified under the Clinical Laboratory Improvement Amendments of 1988 (CLIA-88) as qualified to perform high complexity clinical laboratory testing. Specimen Tissue - Mass Performing Organization Address City/State/Zipcode Phone Number [facility] [address] [place] [address] [facility] * Urinalysis w/Microscopic (05/30/2018 7:23 AM BREWERY PUMPER) Color, UA Yellow [facility] Clarity, UA Clear [facility] Specific [place], UA 1.020 1.001 - 1.035 [facility] pH, UA 5.0 5.0 - 8.0 [facility] Protein, UA Negative Negative [facility] Glucose, UA Negative Negative [facility] Ketones, UA Negative Negative [facility] Bilirubin, UA Negative Negative [facility] Blood, UA Negative Negative [facility] Nitrite, UA Negative Negative [facility] Leukocytes, UA Negative Negative [facility] Urobilinogen, UA 0.2 0.2 - 1.0 mg/dL [facility] RBC, UA <1 /HPF [facility] WBC, UA 2 /HPF [facility] Mucus Rare [facility] Squam Epithel, UA <1 /HPF [facility] Ca Oxalate Citlalli, UA Occasional [facility] Specimen Source [facility] Specimen Urine Performing Organization Address City/[facility] Phone Number [facility] [address] [place] [address] [phone] [place] [address] * ABORH, manual (05/30/2018 6:17 AM BREWERY PUMPER) ABO Grouping A [facility] Rh Factor POS [facility] Specimen Blood Performing Organization Address City/[facility] [place] [address] [facility] * aPTT (05/30/2018 6:17 AM BREWERY PUMPER) PTT 29.2 22.5 - 36.0 seconds [facility] Specimen Blood Performing Organization Address City/State/Zipcode Phone Number [facility] [address], [place] [id number] [facility] * Prothrombin time/INR (05/30/2018 6:17 AM BREWERY PUMPER) Protime 13.2 11.7 - 14.7 seconds [facility] INR 1.0 <=5.9 [facility] Specimen Blood Narrative Performed At RECOMMENDED COUMADIN/WARFARIN INR THERAPY RANGES [facility] STANDARD DOSE: 2.0 - 3.0 Includes: PROPHYLAXIS for venous thrombosis, [facility] systemic embolization; TREATMENT for venous thrombosis and/or pulmonary embolus. HIGH RISK: Target INR is 2.5-3.5 for patients with mechanical heart valves. Performing Organization Address City/[facility]conc Phone Number [facility] [address], [place] [phone] [facility] * MRA head without IV contrast (05/22/2018 1:20 PM BREWERY PUMPER) Narrative Performed At FINAL REPORT [facility] MRA brain without contrast 05/22/2018 1:45 PM CLINICAL HISTORY: MENINGIOMA COMPARISON:None available TECHNIQUE: Three-dimensional [id number] intracranial MRA was performed, from which maximal intensity projection 3-D reconstructions of the intracranial arterial vasculatures were created. FINDINGS: There is no vessel occlusion, flow-limiting stenosis, or aneurysm. IMPRESSION: Unremarkable intracranial MRA. Signed: Alex Voss MD Report Verified Date/Time:05/22/2018 13:47:01 Reading Location: [facility] Radiology Reading Room Procedure Note Interface, External Ris In - 05/22/2018 1:55 PM BREWERY PUMPER FINAL REPORT MRA brain without contrast 05/22/2018 1:45 PM CLINICAL HISTORY: MENINGIOMA COMPARISON: None available TECHNIQUE: Three-dimensional [id number] intracranial MRA was performed, from which maximal intensity projection 3-D reconstructions of the intracranial arterial vasculatures were created. FINDINGS: There is no vessel occlusion, flow-limiting stenosis, or aneurysm. IMPRESSION: Unremarkable intracranial MRA. Signed: Alex Voss MD Report Verified Date/Time: 05/22/2018 13:47:01 Reading Location: [facility] Reading Room Performing Organization Address City/State/Zipcode Phone Number [facility] * Type and screen, automated (05/20/2018 3:09 PM BREWERY PUMPER) ABO/RH AUTOMATED (BEAKER) A POSITIVE [facility] Ab Scrn NEGATIVE [facility] Specimen Blood Performing Organization Address [facility] [place] [address] [phone] * BUN and Creatinine (05/20/2018 3:09 PM BREWERY PUMPER) BUN 21 7 - 21 mg/dL [facility] Creatinine 0.91 0.57 - 1.25 mg/dL [facility] EGFR 63Comment: ESTIMATED GFR IS mL/min/1.73 sq m [facility] NOT ACCURATE CREATININE [facility] CLEARANCE IN PREDICTING GLOMERULAR FILTRATION RATE. ESTIMATED GFR IS NOT APPLICABLE FOR DIALYSIS PATIENTS. Specimen Blood Performing Organization Address [facility] Centercode Phone Number [address] [address] [facility] * Platelet count (05/20/2018 3:09 PM BREWERY PUMPER) Platelets 209 150 - 450 K/CU MM [facility] Specimen Blood Performing Organization Address City/State/Zipcode Phone Number [address] [address] [facility] * Hemoglobin (05/20/2018 3:09 PM BREWERY PUMPER) Hemoglobin 12.8 11.2 - 15.7 GM/DL [facility] Specimen Blood Performing Organization Address City/[facility]/Zipcode Phone Number [address] [address] [facility] * Electrolytes (05/20/2018 3:09 PM BREWERY PUMPER) Sodium 142 136 - 145 meq/L [facility] Potassium 3.7 3.5 - 5.1 meq/L [facility] Chloride 105 98 - 107 meq/L [facility] CO2 30 (H) 22 - 29 meq/L [facility] Specimen Blood Performing Organization Address City/State/Zipcode Phone Number [facility] [address] [place] [address] [facility] * ECG 12 lead (05/20/2018 3:04 PM BREWERY PUMPER) Narrative Performed At Ventricular Rate 55 BPM [facility] Atrial Rate 55 BPM P-R Interval 162 ms QRS Duration 88 ms Q-T Interval 444 ms QTC Calculation(Bazett) 424 ms P [place] 53 degrees R [place] 78 degrees T [place] 7 degrees Sinus bradycardia Minimal voltage criteria for LVH, may be normal variant Nonspecific T wave abnormality Abnormal ECG No previous ECGs available Confirmed by Ruby ELIZONDO MICHAEL ([id number]) on 05/21/2018 8:04:32 AM Procedure Note Interface, External Ris In - 05/21/2018 8:04 AM BREWERY PUMPER Ventricular Rate 55 BPM Atrial Rate 55 BPM P-R Interval 162 ms QRS Duration 88 ms Q-T Interval 444 ms QTC Calculation(Bazett) 424 ms P [place] 53 degrees R [place] 78 degrees T [place] 7 degrees Sinus bradycardia Minimal voltage criteria for LVH, may be normal variant Nonspecific T wave abnormality Abnormal ECG No previous ECGs available Confirmed by Ruby ELIZONDO MICHAEL ([id number]) on 05/21/2018 8:04:32 AM Performing Organization Address City/State/Zipcode Phone Number [facility] M[facility] after 08/07/2017 Insurance Payer Benefit Subscriber ID Type Phone Address Plan / Group [employer]UE [employer]BS OS xxxxxxxxxxxx PPO [phone] [address] [place] [address] O Advance Directives For more information, please contact: [address] [address] Date Inactivated Comments Code Status Date Activated Full Code 05/30/2018 6:45 PM This code status was determined by: Patient 05/30/2018 6:45 PM Full Code 05/30/2018 6:00 AM This code status was determined by: Patient
--- OUTSIDE RECORDS SUMMARY | 2018-08-08 06:16 | XMS REPORT ---
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 Allergies, Adverse Reactions, Alerts This patient has no known allergies or adverse reactions. Medications This patient has no known medications. Results Test Description Test Time Test Comments Text Results Atomic Results Result Comments SHORT-LATENCY SPE, ALL LIMBS 2018-06-14 20:58:00 NEUROCONNECT INTRAOPERATIVE MONITORING REPORT Patient Name: Trini Paz [facility] Surgery Date: 05/30/2018 Basil Pro: [id number] Monitoring began at 0812 and finished at 1315 Surgeon: Kasi Turcios MD Examining Physician: Veronika Mejia M.D., Karey Edwards M.D. Monitoring Technologist: [...] Recording Parameters: CS5, CP3, CP4, Cz and FPz,Transcranial electrical Motor Evoked Potentials recorded from bilateral Abductor Pollicis Brevis, TibialisAnterior referenced to Lateral Gastrocnemius, and Adductor Hallucis muscle groups. Description: Intraoperative neurophysiological monitoring was performed using a combination of upper and lowerextremity somatosensory evoked potentials and transcranial electrical motor evoked potentials (TceMEP). Areal-time connection with the examining neurologist was established and maintained throughout theoperative procedure by the monitoring technologist. Upper extremity somatosensory evoked potentials wererecorded ce ntrally at the cervical and cortical levels following median nerve stimulation at the wrist. Lowerextremity somatosensory evoked potentials were recorded centrally at the cervical and cortical levelsfollowing posterior tibial nerve stimulation at the ankle. Upper and lower SSEPs were well formed andreproducible at baselines. No changes were seen at closing. Surgeon aware. TcMEPs were recordedperipherally from the upper and lower extremities following alternating polarity motor strip stimulation.Upper and lower TcMEPs were well formed and reproducible at baselines. No changes seen at closing. Thesurgeon was informed of all results, and he acknowledged. Conclusion: The SEP study suggests the absence of untoward, secondary effects on the somatosensory pathway as a consequence of this surgical procedure. The MEP study suggests the absence of untoward, secondary effects on the motor pathways innervating these monitored muscles. Surgeon aware of all responses in real-time during the case and at cl osing. 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 The majority of [...] close clinical follow-up, as is clinically indicated. 77742 x 2; 85184; 49074L. Brain tumor; B. Mass Part A. Received fresh for intraoperative consultation is a 0.3 x 0.1 x less than 0.1 cm macias-fleming piece of tissue. Touch preparations are made, and the specimen is submitted entirely for frozen sections.Section code:A1FS, frozen section AG/ewPart B: Received in formalin, labeled with the patient's information and "mass", is a 1.7 x 1.2 x 0.3 cm aggregate of macias-pink to macias-red pieces of tissue. The specimen is submitted entirely following filtration in cassette B1. /Victor Manuel1FS - BRAIN, EXCISION: - MENINGIOMA This was verbally reported by Dr. Gill on May 30, 2018 at 10:48 A.M. Performed on A and BThe interpretation of this case included the use of immunohistochemistry or special stains. Immunohistochemistry technical testing was performed at [facility], Pathology Laboratory where it was developed and its performance characteristics were de termined. It has not been cleared or approved [...] to perform high complexity clinical laboratory testing. CBC W/PLT COUNT & AUTO DIFFERENTIAL 2018-06-01 06:22:00 WHITE BLOOD CELL COUNT (BEAKER) (test ahmm=521) 13.2 K/ L 3.5-10.5 RED BLOOD CELL COUNT (BEAKER) (test xnip=507) 3.56 M/ L 3.93-5.22 HEMOGLOBIN (BEAKER) (test xmgx=099) 10.9 GM/DL 11.2-15.7 HEMATOCRIT (BEAKER) (test irsc=962) 32.8 % 34.1-44.9 MEAN CORPUSCULAR VOLUME (BEAKER) (test uwsi=364) 92.1 fL 79.4-94.8 MEAN CORPUSCULAR HEMOGLOBIN (BEAKER) (test wrmi=603) 30.6 pg 25.6-32.2 MEAN CORPUSCULAR HEMOGLOBIN CONC (BEAKER) (test wmgb=155) 33.2 GM/DL 32.2-35.5 RED CELL DISTRIBUTION WIDTH (BEAKER) (test sxtu=531) 12.8 % 11.7-14.4 PLATELET COUNT (BEAKER) (test ewxz=746) 149 K/CU MM 150-450 MEAN PLATELET VOLUME (BEAKER) (test dulw=828) 12.9 fL 9.4-12.3 NUCLEATED RED BLOOD CELLS (BEAKER) (test azbe=280) 0 /100 WBC 0-0 NEUTROPHILS RELATIVE PERCENT (BEAKER) (test iyqd=282) 92 % LYMPHOCYTES RELATIVE PERCENT (BEAKER) (test byqc=966) 4 % MONOCYTES RELATIVE PERCENT (BEAKER) (test wqzl=921) 3 % EOSINOPHILS RELATIVE PERCENT (BEAKER) (test xyxp=638) 0 % BASOPHILS RELATIVE PERCENT (BEAKER) (test koeb=665) 0 % NEUTROPHILS ABSOLUTE COUNT (BEAKER) (test cyad=631) 12.13 K/ L 1.56-6.13 LYMPHOCYTES ABSOLUTE COUNT (BEAKER) (test kqvu=162) 0.49 K/ L 1.18-3.74 MONOCYTES ABSOLUTE COUNT (BEAKER) (test dwlo=418) 0.45 K/ L 0.24-0.36 EOSINOPHILS ABSOLUTE COUNT (BEAKER) (test zxsn=151) 0.00 K/ L 0.04-0.36 BASOPHILS ABSOLUTE COUNT (BEAKER) (test vvna=925) 0.01 K/ L 0.01-0.08 IMMATURE GRANULOCYTES-RELATIVE PERCENT (BEAKER) (test gjoh=6501) 1 % 0-1 BASIC METABOLIC [id number] 06:12:00* Test Item Value Reference Range Comments SODIUM (BEAKER) (test tmgk=008) 142 meq/L 136-145 POTASSIUM (BEAKER) (test qonk=642) 3.8 meq/L 3.5-5.1 CHLORIDE (BEAKER) (test dsik=010) 109 meq/L 98-107 CO2 (BEAKER) (test lvbi=595) 26 meq/L 22-29 BLOOD UREA NITROGEN (BEAKER) (test jqzl=118) 15 mg/dL 7-21 CREATININE (BEAKER) (test ndsb=071) 0.68 mg/dL 0.57-1.25 GLUCOSE RANDOM (BEAKER) (test mnst=496) 141 mg/dL 70-105 CALCIUM (BEAKER) (test mvug=340) 9.0 mg/dL 8.4-10.2 EGFR (BEAKER) (test uxfu=5610) 88 mL/min/1.73 sq m ESTIMATED GFR IS NOT ACCURATE CREATININE CLEARANCE IN PREDICTING GLOMERULAR FILTRATION RATE. ESTIMATED GFR IS NOT APPLICABLE FOR DIALYSIS PATIENTS. MR, BRAIN, [id number] 14:05:00FINAL REPORT MRI Brain with and without contrast [...] IMPRESSION: 1. Negative for residual olfactory groove meningioma.2. Postoperative changes as discussed.3. Stable anteromesial left temporal lobe lesion Signed: Alex Santiago Verified Date/Time: 04/2018 14:05:06 Reading Location: [facility] Radiology Reading Room Elect ronically signed by: ALEX SANTIAGO M.D. on 05/31/2018 02:05 PM PHOSPHORUS 2018-05-31 05:20:00* Test Item Value Reference Range Comments PHOSPHORUS (BEAKER) (test tvrt=609) 3.2 mg/dL 2.3-4.7 [id number] 05:20:00* Test Item Value Reference Range Comments MAGNESIUM (BEAKER) (test hhmv=397) 1.9 mg/dL 1.6-2.6 BASIC METABOLIC [id number] 05:20:00* Test Item Value Reference Range Comments SODIUM (BEAKER) (test dmkt=122) 139 meq/L 136-145 POTASSIUM (BEAKER) (test fzmv=884) 3.9 meq/L 3.5-5.1 CHLORIDE (BEAKER) (test flod=731) 108 meq/L 98-107 CO2 (BEAKER) (test qowc=850) 25 meq/L 22-29 BLOOD UREA NITROGEN (BEAKER) (test gmgj=791) 13 mg/dL 7-21 CREATININE (BEAKER) (test xjwx=153) 0.63 mg/dL 0.57-1.25 GLUCOSE RANDOM (BEAKER) (test dlnl=862) 144 mg/dL 70-105 CALCIUM (BEAKER) (test blva=061) 8.8 mg/dL 8.4-10.2 EGFR (BEAKER) (test vwwy=0675) 96 mL/min/1.73 sq m ESTIMATED GFR IS NOT ACCURATE CREATININE CLEARANCE IN PREDICTING GLOMERULAR FILTRATION RATE. ESTIMATED GFR IS NOT APPLICABLE FOR DIALYSIS PATIENTS. Specimen slightly ictericCBC W/PLT COUNT & AUTO [id number] 05:20:00 * Test Item Value Reference Range Comments WHITE BLOOD CELL COUNT (BEAKER) (test jruy=403) 12.7 K/ L 3.5-10.5 RED BLOOD CELL COUNT (BEAKER) (test impu=896) 3.72 M/ L 3.93-5.22 HEMOGLOBIN (BEAKER) (test yupd=930) 11.3 GM/DL 11.2-15.7 HEMATOCRIT (BEAKER) (test ifxu=897) 33.8 % 34.1-44.9 MEAN CORPUSCULAR VOLUME (BEAKER) (test qplt=141) 90.9 fL 79.4-94.8 MEAN CORPUSCULAR HEMOGLOBIN (BEAKER) (test paqr=786) 30.4 pg 25.6-32.2 MEAN CORPUSCULAR HEMOGLOBIN CONC (BEAKER) (test gtoc=786) 33.4 GM/DL 32.2-35.5 RED CELL DISTRIBUTION WIDTH (BEAKER) (test tvcf=524) 12.4 % 11.7-14.4 PLATELET COUNT (BEAKER) (test swtv=581) 138 K/CU MM 150-450 MEAN PLATELET VOLUME (BEAKER) (test xywn=823) 12.3 fL 9.4-12.3 NUCLEATED RED BLOOD CELLS (BEAKER) (test xnuz=276) 0 /100 WBC 0-0 NEUTROPHILS RELATIVE PERCENT (BEAKER) (test miff=974) 94 % LYMPHOCYTES RELATIVE PERCENT (BEAKER) (test kstx=667) 3 % MONOCYTES RELATIVE PERCENT (BEAKER) (test lwtn=330) 3 % EOSINOPHILS RELATIVE PERCENT (BEAKER) (test qjve=704) 0 % BASOPHILS RELATIVE PERCENT (BEAKER) (test duem=515) 0 % NEUTROPHILS ABSOLUTE COUNT (BEAKER) (test igig=430) 11.89 K/ L 1.56-6.13 LYMPHOCYTES ABSOLUTE COUNT (BEAKER) (test drjd=068) 0.41 K/ L 1.18-3.74 MONOCYTES ABSOLUTE COUNT (BEAKER) (test rrgr=663) 0.33 K/ L 0.24-0.36 EOSINOPHILS ABSOLUTE COUNT (BEAKER) (test xiyg=788) 0.00 K/ L 0.04-0.36 BASOPHILS ABSOLUTE COUNT (BEAKER) (test kzwr=014) 0.01 K/ L 0.01-0.08 IMMATURE GRANULOCYTES-RELATIVE PERCENT (BEAKER) (test dlrd=5773) 1 % 0-1 [id number] 14:46:00* Test Item Value Reference Range Comments PHOSPHORUS (BEAKER) (test undm=597) 3.6 mg/dL 2.3-4.7 [id number] 14:46:00* Test Item Value Reference Range Comments MAGNESIUM (BEAKER) (test czbj=702) 2.1 mg/dL 1.6-2.6 BASIC METABOLIC [id number] 14:46:00* Test Item Value Reference Range Comments SODIUM (BEAKER) (test vkxo=168) 143 meq/L 136-145 POTASSIUM (BEAKER) (test xppp=201) 4.1 meq/L 3.5-5.1 CHLORIDE (BEAKER) (test yjva=913) 113 meq/L 98-107 CO2 (BEAKER) (test lkbe=475) 22 meq/L 22-29 BLOOD UREA NITROGEN (BEAKER) (test nrey=119) 15 mg/dL 7-21 CREATININE (BEAKER) (test nsdh=965) 0.74 mg/dL 0.57-1.25 GLUCOSE RANDOM (BEAKER) (test xhmi=120) 146 mg/dL 70-105 CALCIUM (BEAKER) (test cwog=329) 8.5 mg/dL 8.4-10.2 EGFR (BEAKER) (test lgja=1604) 80 mL/min/1.73 sq m ESTIMATED GFR IS NOT ACCURATE CREATININE CLEARANCE IN PREDICTING GLOMERULAR FILTRATION RATE. ESTIMATED GFR IS NOT APPLICABLE FOR DIALYSIS PATIENTS. CBC (HEMOGRAM ONLY)2018-05-30 14:31:00* Test Item Value Reference Range Comments WHITE BLOOD CELL COUNT (BEAKER) (test abeb=431) 5.7 K/ L 3.5-10.5 RED BLOOD CELL COUNT (BEAKER) (test xbgu=631) 3.90 M/ L 3.93-5.22 HEMOGLOBIN (BEAKER) (test xvuo=332) 12.0 GM/DL 11.2-15.7 HEMATOCRIT (BEAKER) (test kffs=154) 35.8 % 34.1-44.9 MEAN CORPUSCULAR VOLUME (BEAKER) (test wedt=718) 91.8 fL 79.4-94.8 MEAN CORPUSCULAR HEMOGLOBIN (BEAKER) (test rkiq=912) 30.8 pg 25.6-32.2 MEAN CORPUSCULAR HEMOGLOBIN CONC (BEAKER) (test vkpz=299) 33.5 GM/DL 32.2-35.5 RED CELL DISTRIBUTION WIDTH (BEAKER) (test piys=358) 12.6 % 11.7-14.4 PLATELET COUNT (BEAKER) (test xfyu=430) 148 K/CU MM 150-450 MEAN PLATELET VOLUME (BEAKER) (test aiiu=715) 12.3 fL 9.4-12.3 NUCLEATED RED BLOOD CELLS (BEAKER) (test beap=330) 0 /100 WBC 0-0 CALCIUM, [id number] 12:44:00* Test Item Value Reference Range Comments CALCIUM IONIZED (BEAKER) (test fjis=874) 1.08 mmol/L 1.12-1.27 PH, BLOOD (BEAKER) (test zgcy=3505) 7.39 BLOOD GAS, [id number] 12:44:00* Test Item Value Reference Range Comments PH ARTERIAL (BEAKER) (test wmzf=683) 7.46 7.35-7.45 PCO2 ARTERIAL (BEAKER) (test fvzy=748) 30 mmHg 35-45 PO2 ARTERIAL (BEAKER) (test vcwo=541) 254 mmHg 80-90 O2 SATURATION ARTERIAL (BEAKER) (test lkzd=128) 99.6 % 96.0-97.0 HCO3 ARTERIAL (BEAKER) (test vqsk=901) 22 mmol/L 21-29 BASE EXCESS ARTERIAL (BEAKER) (test pxkr=335) -2.6 mmol/L -2.0-3.0 PATIENT TEMPERATURE (BEAKER) (test awwx=6677) 32.0 C FIO2 (BEAKER) (test iajl=1600) 57.0 % HGB/HCT (H&H) - STAT [id number] 12:44:00* Test Item Value Reference Range Comments HEMOGLOBIN (BEAKER) (test zist=930) 11.8 g/dL 12.0-15.0 HEMATOCRIT (BEAKER) (test jpor=822) 35.0 % 36.0-45.0 GLUCOSE-STAT [id number] 12:43:00* Test Item Value Reference Range Comments GLUCOSE RANDOM (BEAKER) (test yuwb=703) 107 mg/dL 70-110 SODIUM NA-STAT [id number] 12:43:00* Test Item Value Reference Range Comments SODIUM (BEAKER) (test vinm=190) 140 meq/L 135-148 POTASSIUM-STAT [id number] 12:43:00* Test Item Value Reference Range Comments POTASSIUM (BEAKER) (test dhfv=122) 3.7 meq/L 3.6-5.5 GLUCOSE-STAT [id number] 09:24:00* Test Item Value Reference Range Comments GLUCOSE RANDOM (BEAKER) (test mnnw=811) 105 mg/dL 70-110 SODIUM NA-STAT [id number] 09:24:00* Test Item Value Reference Range Comments SODIUM (BEAKER) (test tlzv=163) 141 meq/L 135-148 POTASSIUM-STAT [id number] 09:24:00* Test Item Value Reference Range Comments POTASSIUM (BEAKER) (test cuvr=492) 3.7 meq/L 3.6-5.5 CALCIUM, [id number] 09:24:00* Test Item Value Reference Range Comments CALCIUM IONIZED (BEAKER) (test rkui=493) 1.12 mmol/L 1.12-1.27 PH, BLOOD (BEAKER) (test lris=4339) 7.42 BLOOD GAS, [id number] 09:24:00* Test Item Value Reference Range Comments PH ARTERIAL (BEAKER) (test qmug=805) 7.44 7.35-7.45 PCO2 ARTERIAL (BEAKER) (test wlfc=327) 38 mmHg 35-45 PO2 ARTERIAL (BEAKER) (test xhyp=821) 475 mmHg 80-90 O2 SATURATION ARTERIAL (BEAKER) (test szpe=543) 99.9 % 96.0-97.0 HCO3 ARTERIAL (BEAKER) (test yekn=454) 25 mmol/L 21-29 BASE EXCESS ARTERIAL (BEAKER) (test gfbm=223) 0.7 mmol/L -2.0-3.0 PATIENT TEMPERATURE (BEAKER) (test kupa=8000) 35.5 C FIO2 (BEAKER) (test avda=0177) 90.0 % HGB/HCT (H&H) - STAT [id number] 09:24:00* Test Item Value Reference Range Comments HEMOGLOBIN (BEAKER) (test ugix=011) 11.9 g/dL 12.0-15.0 HEMATOCRIT (BEAKER) (test bhoo=455) 35.0 % 36.0-45.0 URINALYSIS W/ [id number] 07:33:00* Test Item Value Reference Range Comments COLOR (BEAKER) (test phsw=537) Yellow CLARITY (BEAKER) (test fibg=457) Clear SPECIFIC GRAVITY UA (BEAKER) (test tzdo=233) 1.020 1.001-1.035 PH UA (BEAKER) (test odfj=518) 5.0 5.0-8.0 PROTEIN UA (BEAKER) (test tijk=037) Negative Negative GLUCOSE UA (BEAKER) (test thip=284) Negative Negative KETONES UA (BEAKER) (test naaa=316) Negative Negative BILIRUBIN UA (BEAKER) (test qbkb=759) Negative Negative BLOOD UA (BEAKER) (test xzwt=437) Negative Negative NITRITE UA (BEAKER) (test lwug=693) Negative Negative LEUKOCYTE ESTERASE UA (BEAKER) (test hmgw=365) Negative Negative UROBILINOGEN UA (BEAKER) (test wwyt=495) 0.2 mg/dL 0.2-1.0 RBC UA (BEAKER) (test lgqf=332) < /HPF WBC UA (BEAKER) (test ttzs=245) 2 /HPF MUCUS (BEAKER) (test jxke=9911) Rare SQUAMOUS EPITHELIAL (BEAKER) (test scmb=110) < /HPF CALCIUM OXALATE CRYSTALS (BEAKER) (test ovsj=991) Occasional SOURCE(BEAKER) (test hswy=3040) [id number] 06:51:00* Test Item Value Reference Range Comments PARTIAL THROMBOPLASTIN TIME (BEAKER) (test blpr=647) 29.2 seconds 22.5-36.0 BASIC METABOLIC [id number] 06:49:00* Test Item Value Reference Range Comments SODIUM (BEAKER) (test kbhj=355) 141 meq/L 136-145 POTASSIUM (BEAKER) (test ymfz=117) 4.0 meq/L 3.5-5.1 CHLORIDE (BEAKER) (test ixwr=328) 107 meq/L 98-107 CO2 (BEAKER) (test dhvl=569) 27 meq/L 22-29 BLOOD UREA NITROGEN (BEAKER) (test ltgl=967) 23 mg/dL 7-21 CREATININE (BEAKER) (test oqvm=988) 0.78 mg/dL 0.57-1.25 GLUCOSE RANDOM (BEAKER) (test pkai=273) 88 mg/dL 70-105 CALCIUM (BEAKER) (test gpzx=492) 9.6 mg/dL 8.4-10.2 EGFR (BEAKER) (test ewqb=6727) 75 mL/min/1.73 sq m ESTIMATED GFR IS NOT ACCURATE CREATININE CLEARANCE IN PREDICTING GLOMERULAR FILTRATION RATE. ESTIMATED GFR IS NOT APPLICABLE FOR DIALYSIS PATIENTS. Specimen slightly ictericPROTHROMBIN [id number] 06:45:00* Test Item Value Reference Range Comments PROTIME (BEAKER) (test jrgk=378) 13.2 seconds 11.7-14.7 INR (BEAKER) (test tzay=497) 1.0 <=5.9 RECOMMENDED COUMADIN/WARFARIN INR THERAPY RANGESSTANDARD DOSE: 2.0 - 3.0 Inclu boogie: PROPHYLAXIS for venous thrombosis, systemic embolization; TREATMENT for krissy ous thrombosis and/or pulmonary embolus.HIGH RISK: Target INR is 2.5-3.5 for pat ients with mechanical heart valves.CBC W/PLT COUNT & AUTO [id number] 06:32:00* Test Item Value Reference Range Comments WHITE BLOOD CELL COUNT (BEAKER) (test dask=206) 3.7 K/ L 3.5-10.5 RED BLOOD CELL COUNT (BEAKER) (test gqbb=242) 4.23 M/ L 3.93-5.22 HEMOGLOBIN (BEAKER) (test huoy=106) 13.0 GM/DL 11.2-15.7 HEMATOCRIT (BEAKER) (test pzrd=935) 39.2 % 34.1-44.9 MEAN CORPUSCULAR VOLUME (BEAKER) (test onbd=955) 92.7 fL 79.4-94.8 MEAN CORPUSCULAR HEMOGLOBIN (BEAKER) (test jmtj=706) 30.7 pg 25.6-32.2 MEAN CORPUSCULAR HEMOGLOBIN CONC (BEAKER) (test pyct=287) 33.2 GM/DL 32.2-35.5 RED CELL DISTRIBUTION WIDTH (BEAKER) (test woha=590) 12.7 % 11.7-14.4 PLATELET COUNT (BEAKER) (test ojao=278) 166 K/CU MM 150-450 MEAN PLATELET VOLUME (BEAKER) (test cvpa=446) 12.2 fL 9.4-12.3 NUCLEATED RED BLOOD CELLS (BEAKER) (test tppy=787) 0 /100 WBC 0-0 NEUTROPHILS RELATIVE PERCENT (BEAKER) (test sqie=005) 55 % LYMPHOCYTES RELATIVE PERCENT (BEAKER) (test fmun=134) 31 % MONOCYTES RELATIVE PERCENT (BEAKER) (test gxkt=269) 8 % EOSINOPHILS RELATIVE PERCENT (BEAKER) (test zsyl=187) 4 % BASOPHILS RELATIVE PERCENT (BEAKER) (test xqbu=798) 1 % NEUTROPHILS ABSOLUTE COUNT (BEAKER) (test cnnj=121) 2.04 K/ L 1.56-6.13 LYMPHOCYTES ABSOLUTE COUNT (BEAKER) (test nxjt=980) 1.14 K/ L 1.18-3.74 MONOCYTES ABSOLUTE COUNT (BEAKER) (test ndwn=414) 0.31 K/ L 0.24-0.36 EOSINOPHILS ABSOLUTE COUNT (BEAKER) (test oikt=801) 0.15 K/ L 0.04-0.36 BASOPHILS ABSOLUTE COUNT (BEAKER) (test cfxh=626) 0.05 K/ L 0.01-0.08 IMMATURE GRANULOCYTES-RELATIVE PERCENT (BEAKER) (test acxq=4937) 0 % 0-1 MR, BRAIN, [id number] 16:10:00FINAL REPORT MRI Brain with and without contrast Stealth protocol 05/22/2018 2:52 PM CLINICAL HISTORY: meningioma TECHNIQUE: Multiplanar, multisequence MR imaging of the brain was performed, utilizing the following imaging sequences: Axial T1, T2, FLAIR, GRE, DWI/ADC; sagittal T1; postcontrast axial, sagittal, and coronal T1. Thin section axial T2 FLAIR and pre and postcontrast T1 3-D FFE imaging sequences were obtained for intraoperative neuronavigation purposes. COMPARISON: None available. FINDINGS: There is a partially calcified olfactory groove centered meningioma measuring 3.4 cm AP by 4.2 cm transverse by 3.5 cm craniocaudal. There is deformation of the adjacent paramedian frontal lobes, proximal corpus callosum, and anterior lateral ventricles, without compressive edema or ventricular entrapment. The anterior cerebral arteries are displaced superiorly but are not encased. 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 There is no acute infarct, remarkable white matter disease, hematoma, hydrocephalus, or extra-axial collection. Normal appearing flow-voids are present in the major intracranial vascular structures. There is bilateral maxillary sinusitis. The sellar and pineal regions, craniocervical junction, and orbits are unremarkable. IMPRESSION: 1. 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 2. 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 3. Sinusitis. Signed: Alex Santiago MDReport Verified Date/Time: 05/22/2018 16:10:03 Reading Location: [facility] Reading Room , MRA, BRAIN, WITHOUT [id number] 13:47:00FINAL REPORT MRA brain without contrast 05/22/2018 1:45 PM CLINICAL HISTORY: MENINGIOMA COMPARISON: None available TECHNIQUE: Three-dimensional evho-qv-ycbkvh intracranial MRA was performed, from which maximal intensity projection 3-D reconstructions of the intracranial arterial vasculatures were created. FINDINGS: There is no vessel occlusion, flow-limiting stenosis, or ane urysm. IMPRESSION: Unremarkable intracranial MRA. Signed: Alex Santiago MDRep ort Verified Date/Time: 05/22/2018 13:47:01 Reading Location: [facility] Reading Room Electronically signed by: ALEX SANTIAGO M.D. on 05/22 01:47 PM [id number] 15:45:00* Test Item Value Reference Range Comments SODIUM (BEAKER) (test vdvx=282) 142 meq/L 136-145 POTASSIUM (BEAKER) (test mgvt=493) 3.7 meq/L 3.5-5.1 CHLORIDE (BEAKER) (test oyin=728) 105 meq/L 98-107 CO2 (BEAKER) (test laqc=404) 30 meq/L 22-29 BUN AND [id number] 15:45:00* Test Item Value Reference Range Comments BLOOD UREA NITROGEN (BEAKER) (test rgvc=523) 21 mg/dL 7-21 CREATININE (BEAKER) (test glld=251) 0.91 mg/dL 0.57-1.25 EGFR (BEAKER) (test tqmi=9953) 63 mL/min/1.73 sq m ESTIMATED GFR IS NOT ACCURATE CREATININE CLEARANCE IN PREDICTING GLOMERULAR FILTRATION RATE. ESTIMATED GFR IS NOT APPLICABLE FOR DIALYSIS PATIENTS. PLATELET [id number] 15:32:00* Test Item Value Reference Range Comments PLATELET COUNT (BEAKER) (test iqba=730) 209 K/CU MM 150-450 [id number] 15:29:00* Test Item Value Reference Range Comments HEMOGLOBIN (DEVORAH) (test vhin=757) 12.8 GM/DL 11.2-15.7
--- NOTE | 2018-08-08 07:10 | NUR ---
SPIRITUAL CARE - Pre-Surgery Assessment: Pt in bed. Pt's at bedside. Pt reported supportive attention from family and friends. Intervention: I provided pastoral presence, hospitality, and sympathetic listening. I acquainted pt with availability of biomedical equipment specialist while hospitalized. Outcome: Pt expressed appreciation for visit. No need for follow up indicated at this time. [facility] Spiritual Care Department O: [phone] Pager: [phone] ([phone] number calling [phone])
[2018-08-08 09:35] VITALS: BP 105/67
== END | disposition home or self-care (01) ==
LOC: OR 06:13
PROVIDERS: ATTEND Internal Medicine Gastroenterology
DX: Z12.11 Encounter for screening for malignant neoplasm of colon (principal); K64.8 Other hemorrhoids; Z71.3 Dietary counseling and surveillance; I10 Essential (primary) hypertension; Z68.1 Body mass index [BMI] 19.9 or less, adult
CPT/HCPCS: 45378; J2250; J2704